=== PATIENT | male | born 1960 | race Caucasian/White ===

== ENCOUNTER 2020-12-28 18:23 | Emergency (ER) | payer SELFPAY ==
[2020-12-28 18:33] VITALS: BP 152/85
[2020-12-28 18:34] VITALS: PULSE 99
[2020-12-28] MEDS: Lidocaine 1% 50 MG/5 ML Syringe ONE (19:28)
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
== END 2020-12-28 20:00 | disposition left against medical advice (07) ==
LOC: LL.ED 18:23
DX: S01.511A Laceration without foreign body of lip, initial encounter (principal); Z91.09 Other allergy status, other than to drugs and biological substances; V18.0XXA Pedal cycle driver injured in noncollision transport accident in nontraffic accident, initial encounter
CPT/HCPCS: 12011; 99282-25; 99283